=== PATIENT | male | born 1940 | race Caucasian/White ===

== ENCOUNTER → 2018-09-12 | Outpatient (CLI) | payer OTHER ==
[~2018-09-12] MED LIST: ALDACTONE25 MG PO; ASPIR 8181 MG PO; ATORVASTATIN CA80 MG PO; AUGMENTIN 875875 MG PO; BENADRYL25 MG PO; COUMADIN 4 MG TA4 M1 PO; COUMADIN 5 MG TA5 M1 PO; DIGOXIN125 MCG PO; LANOXIN 0.250.25 MG PO; LISINOPRIL10 MG PO; LOPRESSOR25 PO; METOPROLOL TART25 MG PO; MULTI VITAMIN1 EACH PO; SIMVASTATIN80 MG PO; SPIRIVA INH; SYMBICORT160 MCG/4. INH; TOPROL XL25 MG PO; TYLENOL PM EX-1 EACH PO; VENTOLIN HFA INH8 GM IH; VITAMIN B-12500 MCG PO; VITAMIN D-32000 UNIT PO
== END ==
LOC: RAD 12:29
DX: R91.8 Other nonspecific abnormal finding of lung field (principal); Z88.1 Allergy status to other antibiotic agents; Z88.0 Allergy status to penicillin

== ENCOUNTER → 2018-09-19 | Outpatient (CLI) | payer OTHER | LOC: RAD 11:55 | DX: J44.9 Chronic obstructive pulmonary disease, unspecified (principal); Z88.1 Allergy status to other antibiotic agents; Z88.0 Allergy status to penicillin ==

== ENCOUNTER → 2021-07-01 | Outpatient (CLI) | payer BC | LOC: RAD 09:05 | PROVIDERS: ATTEND Internal Medicine | DX: J44.9 Chronic obstructive pulmonary disease, unspecified (principal) ==